=== PATIENT | male | born 1960 | race Caucasian/White ===

== ENCOUNTER 2022-04-18 01:13 | Emergency (ER) | payer OTHER ==
[2022-04-18] MEDS ORDERED: Sodium Chloride 0.9% 1,000 ML ONE (01:48)
[2022-04-18] MEDS ORDERED: diphenhydrAMINE 50 MG/ML VIAL ONE (01:48)
[2022-04-18] MEDS ORDERED: Metoclopramide HCl 10 MG/2 ML VIAL ONE (01:48)
[2022-04-18 01:51] LABS: #Lymphocytes 0.6 thou/uL (1.20-3.40); #Monocytes 0.1 thou/uL (0.11-0.59); #Neutrophils 8.1 thou/uL (1.40-6.50); %Basophils 0.4 % (0.0-1.0); %Eosinophils 0.2 % (0.0-10.0); %Lymphocytes 7.1 % (21.0-51.0); %Monocytes 1.4 % (0.0-10.0); Hemoglobin 15.4 g/dL (14.0-18.0); Mean Corpuscular HGB CONC 34.5 g/dL (32.0-36.0); Mean Corpuscular Hemoglobin 32.4 pg (27.0-31.0); Mean Corpuscular Volume 93.9 fl (78.0-98.0); Mean Platelet Volume 9.6 fL (7.4-10.4); Platelet Count 170 10x3/uL (130-400); RBC Distribution Width 11.8 % (11.5-14.5); Red Blood Cell (RBC) Count 4.74 mill/uL (4.70-6.10); White Blood Cell (WBC) Count 8.8 10x3/uL (4.8-10.8)
[2022-04-18 02:06] LABS: Anion Gap 17 mmol/L (10-20); BUN (Urea Nitrogen) 18 mg/dL (8.4-25.7); Calc. Creatinine Clearance 0 mL/min (70-130); Calcium 9.3 mg/dL (7.8-10.44); Carbon Dioxide 19 mmol/L (22-29); Chloride 109 mmol/L (98-107); Estimated GFR 102; Glucose 145 mg/dL (70-105); Potassium 3.5 mmol/L (3.5-5.1); Sodium 141 mmol/L (136-145)
[2022-04-18] MEDS ORDERED: Dexamethasone 10 MG/ML VIAL ONE (02:53)
[2022-04-18] MEDS ORDERED: Ketorolac Tromethamine 30 MG/ML VIAL ONE (02:53)
== END 2022-04-18 03:53 | disposition home or self-care (01) ==
LOC: BURERS 01:13
DX: G43.909 Migraine, unspecified, not intractable, without status migrainosus (principal); Z79.899 Other long term (current) drug therapy
CPT/HCPCS: 70450; 80048; 85025; 96365; 96375; J1100; J1200; J1885; J2765; J7050